=== PATIENT | female | born 1945 | race Hispanic/Latino ===

== ENCOUNTER 2023-08-09 15:19 | Emergency (ER) | payer MEDICARE, OTHER ==
[~2023-08-09] VITALS: Ht 160 cm; Wt 87.5 kg
[2023-08-09 16:05] LABS: APPEARANCE,URINE CLEAR (CLEAR); BILIRUBIN,URINE NEGATIVE (NEGATIVE); COLOR,URINE LIGHT-YELLOW (YELLOW); GLUCOSE, URINE (UA) >=1000 mg/dL (NEGATIVE); KETONES,URINE NEGATIVE (NEGATIVE); LEUKOCYTE ESTERASE ,URINE 25 Leu/uL (NEGATIVE); NITRATE,URINE 1+ (NEGATIVE); PROTEIN,URINE 20 mg/dL (NEGATIVE); UROBILINOGEN,URINE 0.2 mg/dL (0.2-1.0)
[2023-08-09 16:06] LABS: ADD UA MICROSCOPIC YES
[2023-08-09 16:08] LABS: BACTERIA,URINE MOD /HPF (None Seen); MUCUS,URINE RARE LPF (None Seen); SQUAMOUS EPITHELIAL CELL,UR RARE /HPF (0-2)
[2023-08-09 16:28] LABS: BASOPHILS # (AUTO) 0.04 K/uL (0.00-0.20); BASOPHILS % (AUTO) 0.3 % (0.0-5.0); EOSINOPHILS # (AUTO) 0.11 K/uL (0.00-0.70); EOSINOPHILS % (AUTO) 0.8 % (0.0-8.0); HEMATOCRIT 43.2 % (36-48); IMMATURE GRANULOCYTE ABSOLUTE 0.08 K/uL (0-1); LYMPHOCYTES % (AUTO) 7.6 % (21.0-51.0); MEAN CORPUSCULAR HEMOGLOBIN 29.1 pg (27.0-33.0); MEAN CORPUSCULAR HGB CONC 32.6 g/dL (32.0-36.0); MEAN CORPUSCULAR VOLUME 89.1 fL (79-99); MONOCYTES # (AUTO) 1.3 K/uL (0.1-1.0); MONOCYTES % (AUTO) 9.8 % (3.0-13.0); NEUTROPHILS # (AUTO) 10.6 K/uL (1.8-7.7); NEUTROPHILS % (AUTO) 80.9 % (40.0-77.0); PLATELET COUNT (AUTO) 161 K/uL (130-400); RED BLOOD CELL COUNT(AUTO) 4.85 MIL/uL (4.00-5.50); RED CELL DISTRIBUTION WIDTH 14.4 % (11.0-15.5); WHITE BLOOD COUNT (AUTO) 13.1 K/uL (4.8-10.8)
[2023-08-09] MEDS ORDERED: CEFTRIAXONE 1G VIAL IVPB ONE (16:30)
[2023-08-09 16:42] LABS: CREATININE 1.1 mg/dL (0.5-1.5); POTASSIUM 3.8 mmol/L (3.5-5.1)
[2023-08-09 16:47] LABS: BILIRUBIN,TOTAL 0.8 mg/dL (0.2-1.0); TOTAL PROTEIN, SERUM 6.5 g/dL (6.0-8.3)
[2023-08-09] MEDS ORDERED: SULF1TAB42 PO (17:42)
[2023-08-09 18:31] VITALS: BP 135/61; PULSE 68; RESP 18; O2SAT 98
== END 2023-08-09 18:32 | disposition home or self-care (01) ==
LOC: EDH 15:19
DX: N39.0 Urinary tract infection, site not specified (principal); I10 Essential (primary) hypertension; E78.00 Pure hypercholesterolemia, unspecified; E11.9 Type 2 diabetes mellitus without complications; Z90.89 Acquired absence of other organs
CPT/HCPCS: 99284; 96365; 80053; 85025; 87077; 87088; 87186; 82948; 81001; 36415; J0696

== ENCOUNTER → 2024-12-01 | Outpatient (CLI) | payer MEDICARE ==
[~2024-12-01] MED LIST: SULF1TAB42 PO
[2024-12-02] MEDS: REGADENOSON 0.4 MG/5 ML PF SYG IVP ONE (10:56)
== END | disposition home or self-care (01) ==
LOC: SHCH 08:05
PROVIDERS: ATTEND Internal Medicine Cardiovascular Disease
DX: R07.9 Chest pain, unspecified (principal)
CPT/HCPCS: 78452; 93017; J2785; A9500 ×2

== ENCOUNTER 2025-07-15 18:42 | Emergency (ER) | payer MEDICARE ==
[~2025-07-15] VITALS: Ht 157.5 cm; Wt 78.5 kg
[2025-07-15 18:45] VITALS: BP 139/54; PULSE 74; RESP 18; TEMP 98.5
--- NOTE | 2025-07-15 18:59 | ERN ---
ED Note History of Present Illness Stated Complaint: FALL Chief Complaint: Multiple Trauma/Fall Time Seen by MD: 18:59 Dictation: PATIENT IS AN 80-YEAR-OLD FEMALE HERE WITH COMPLAINTS OF A TRIP AND FALL STRIKING HER FACE. SHE SAID IT WAS MECHANICAL ONLY, THERE WAS NO SYNCOPAL EPISODE. HAS A A LOWER LIP LACERATION. WITH FRONTAL HEADACHE. ADDITIONALLY SHE HAS A AN ABRASION TO HER RIGHT ELBOW AND HER RIGHT KNEE. THERE WAS NO MIDLINE CERVICAL SPINE PAIN. NEELY OR RACCOON SIGN NO LOC. TETANUS SHOT IS UNKNOWN. TRAUMA ALERT WAS ACTIVATED. /MIKE AT BEDSIDE. Allergies: Coded Allergies: No Known Drug Allergies (Unverified Allergy, Unknown, 12/19/16) Home Meds Active Scripts Sulfamethoxazole/Trimethoprim (Bactrim Ds Tablet) 800 Mg-160 Mg Tablet, 1 TAB PO BID for 7 Days, #14 TAB 0 Refills Prov:RONEN CONTEH HAND INSPECTOR 08/09/23 Past Medical History Past Medical History: Diabetes-Type I, High Cholesterol, Hypertension Surgical History: Appendectomy History: Not Applicable RN Note Reviewed/Agreed w/PFSH: Yes Review of System Dictation CONSTITUTIONAL: NEGATIVE EXCEPT FOR HPI HEAD/FACE: NEGATIVE EXCEPT FOR HPI LOWER LIP LACERATION EENT: NEGATIVE EXCEPT FOR HPI RESPIRATORY: NEGATIVE EXCEPT FOR HPI GASTROINTESTINAL/ABDOMINAL: NEGATIVE EXCEPT FOR HPI GENITOURINARY: NEGATIVE EXCEPT FOR HPI MUSCULOSKELETAL: NEGATIVE EXCEPT FOR HPI INTEGUMENTARY: NEGATIVE EXCEPT FOR HPI ABRASION TO RIGHT KNEE AND RIGHT ELBOW NEUROLOGICAL/PSYCH: NEGATIVE EXCEPT FOR HPI HEMATOLOGIC/LYMPHATIC: NEGATIVE EXCEPT FOR HPI ALL SYSTEMS NEGATIVE, EXCEPT NOTED ABOVE. 13 POINT REVIEW OF SYSTEMS ASSESSED AND ALL NEGATIVE EXCEPT FOR ABOVE. Initial Vital Sign VS Vital Signs Date Time Temp Pulse Resp B/P (MAP) Pulse Ox O2 Delivery O2 Flow Rate FiO2 07/15/25 18:45 98.4 74 18 139/54 97 Physical Exam Dictation VITAL SIGNS REVIEWED GENERAL APPEARANCE: ALERT, ORIENTED X 3, MILD ACUTE DISTRESS, WELL DEVELOPED, NOURISHED. HEAD AND FACE: LOWER LIP LACERATION EYES: PERRL, PINL, TONGUE PINK, TMJ INTACT LACERATION TO LOWER LIP JAGGED, INCLUDES VERMILION BORDER. PHARYNX CLEAR,NO ERYTHEMA, TONSILS NO EXUDATES, NO ABSCESSES NOTED, MUCOUS MEMBRANE MOIST NECK: SUPPLE, NON-TENDER, NO THYROMEGALY, NO MASSES, NO JVD, NO BRUITS BREAST:DEFERRED CHEST:NO TENDERNESS, NO CREPITUS, NO PARADOXICAL MOVEMENT, NO RETRACTIONS LUNGS:CLEAR, WELL-VENTILATED, SYMMETRIC, NO RALES, NO WHEEZING, NO RHONCHI, NO STRIDOR, GOOD BREATH SOUNDS BILATERALLY HEART: REGULAR RATE, REGULAR RHYTHM, NO MURMUR, NO GALLOPS VASCULAR: NO PERIPHERAL EDEMA, ABDOMEN: SOFT, POSITIVE BOWEL SOUNDS, NONDISTENDED, NO GUARDING, NONTENDER, NO REBOUND, NO MASSES NO HEPATOMEGALY, NO SPLENOMEGALY, NO LOERA'S SIGN, NO HERNIAS. RECTAL: DEFERRED GENITAL: DEFERRED NEUROLOGICAL: NORMAL SPEECH, MOTOR FUNCTION INTACT, SENSORY FUNCTION INTACT MUSCULOSKELETAL: NECK NONTENDER, FULL RANGE OF MOTION, BACK NONTENDER, FULL RANGE OF MOTION, EXTREMITIES: RIGHT KNEE ABRASION WITH TENDERNESS. ELBOW ABRASION. MOTION TO BOTH. SKIN: COLOR PINK, SEE EXTREMITY NOTE LYMPHATIC: DEFERRED Results (Laboratory/Radiology) Laboratory/Radiology Laboratory Tests Test 07/15/25 19:40 White Blood Count 11.0 K/uL (4.8-10.8) H Red Blood Count 4.43 MIL/uL (4.00-5.50) Hemoglobin 13.0 g/dL (12.0-16.0) Hematocrit 39.6 % (36-48) Mean Corpuscular Volume 89.4 fL (79-99) Mean Corpuscular Hemoglobin 29.3 pg (27.0-33.0) Mean Corpuscular Hemoglobin Concent 32.8 g/dL (32.0-36.0) Red Cell Distribution Width 13.9 % (11.0-15.5) Platelet Count 159 K/uL (130-400) Mean Platelet Volume 9.9 fL (7.5-10.5) Immature Granulocyte % (Auto) 0.8 % (0-1) Neutrophils (%) (Auto) 65.9 % (40.0-77.0) Lymphocytes (%) (Auto) 13.5 % (21.0-51.0) L Monocytes (%) (Auto) 9.2 % (3.0-13.0) Eosinophils (%) (Auto) 9.7 % (0.0-8.0) H Basophils (%) (Auto) 0.9 % (0.0-5.0) Neutrophils # (Auto) 7.3 K/uL (1.8-7.7) Lymphocytes # (Auto) 1.5 K/uL (1.0-4.8) Monocytes # (Auto) 1.0 K/uL (0.1-1.0) Eosinophils # (Auto) 1.07 K/uL (0.00-0.70) H Basophils # (Auto) 0.10 K/uL (0.00-0.20) Absolute Immature Granulocyte (auto 0.09 K/uL (0-1) Nucleated Red Blood Cells 0.0 % (0.0-0.19) Prothrombin Time 10.5 SEC (9.6-11.6) Prothromb Time International Ratio 0.99 (0.85-1.15) Activated Partial Thromboplast Time 26.6 SEC (26.3-35.5) Troponin I High Sensitivity 31 ng/L (4-50) Labs Reviewed?: Yes EKG Comment: EKGS SINUS RHYTHM/HEART RATE 66/AXIS NORMAL/NO ECTOPY ED Course ED Course Orders Procedure Category Date Status Time Ct Head/Brain W/O CT 07/15/25 Resulted Contrast 18:49 Laceration Tray Set CPOE 07/15/25 Transmitted Up (Er) 18:49 Tetanus,Diphtheria PHA 07/15/25 Complete Tox [Adult] (Diphther 19:00 Pelvis 1-2vws RAD 07/15/25 Resulted 18:55 Acetaminophen 500mg PHA 07/15/25 Complete Tab (Tylenol 500mg T 19:00 Lidocaine Hcl 1% 20ml PHA 07/15/25 Complete Vial (Lidocaine Hc 19:15 Ct Cervical Spine W/O CT 07/15/25 Resulted Contrast 19:20 Pt And Ptt LAB 07/15/25 Complete 19:31 Cbc With Differential LAB 07/15/25 Complete 19:31 Troponin I High LAB 07/15/25 Complete Sensitivity 19:31 Urinalysis Profile LAB 07/15/25 Logged 19:31 12 Lead Ekg Tracing- EKG 07/15/25 Complete Technical 19:31 Ondansetron 4mg Inj PHA 07/15/25 Complete (Zofran 4mg Inj) 20:00 Ondansetron 4mg Inj PHA 07/15/25 Complete (Zofran 4mg Inj) 19:35 Current Medications Medications (Trade) Dose Ordered Sig/Smooth Route PRN Reason Start Time Stop Time Status Last Admin Dose Admin Acetaminophen (TYLenol 500MG TAB) 1,000 mg ONCE ONCE PO 07/15/25 19:00 07/15/25 19:01 DC Lidocaine HCl (Lidocaine HCl 1% 20ml Vial) 5 ml ONCE STAT INJ 07/15/25 19:15 07/15/25 19:18 DC Ondansetron HCl (zoFRAN 4MG INJ) 4 mg ONCE ONCE IVP 07/15/25 20:00 07/15/25 20:01 DC 07/15/25 19:45 Ondansetron HCl (zoFRAN 4MG INJ) 4 mg STK-MED ONCE .ROUTE 07/15/25 19:35 07/15/25 19:35 DC Tetanus/ Diphtheria Toxoids Adsorbed (DiphthERIA-teTANUS TOXOID [ADULT]/ DECAVAC) 0.5 ml ONCE ONCE IM 07/15/25 19:00 07/15/25 19:01 DC 07/15/25 19:12 Vital Signs Date Time Temp Pulse Resp B/P (MAP) Pulse Ox O2 Delivery O2 Flow Rate FiO2 07/15/25 18:45 98.4 74 18 139/54 97 193/[facility] FOR A STAT READ OF THE CT OF THE HEAD. 1940/CALLED TO REVIEWED CT OF THE HEAD. PATIENT REMAINS NEUROLOGICALLY INTACT. SHE NOW TELLS THE RN/BETSEY THAT SHE HAS BEEN DIZZY IN HIS HAD SEVERAL RECENT FALLS. THIS WAS JUST THE LATEST FALL TODAY. NIH IS 0 ON APPROACH SHE IS MOVING ALL EXTREMITIES 5/5 BILATERALLY. YOUR MILDLY NAUSEATED THAT THIS TIME. 1949/ DR ALEXIS, HE REVIEWED VIDEO ONSET PATIENT NEEDS TO BE TRANSFERRED TO HIGHER LEVEL OF CARE WITH NEUROSURGICAL CAPABILITIES. MARTIN ESPINOSA COVERAGE ANALYST IN ER AND WE WILL INITIATE TRANSFER PROCEEDINGS. SPOKE WITH PATIENT AND SHE AGREES TO BE TRANSFER SHE STATES THERE IS NO FAMILY AVAILABLE TO COME IN AND ASSIST WITH ANY OTHER DECISION-MAKING. SHE REMAINS ALERT AND ORIENTED X4 SPEECH IS CLEAR. Medical Decision Making MDM CT Head Without IV contrast. CLINICAL HISTORY: Patient presents after a fall. TECHNIQUE: Axial computed tomography images of the head/brain without intravenous contrast. COMPARISON: None provided. FINDINGS: BRAIN: Acute subdural hemorrhage along the right frontal, parietal, and temporal convexities with a maximum thickness of approximately 1.3 cm. Mass effect with approximately 0.8 cm leftward midline shift. Acute subdural hemorrhage along the right frontal and right parietal convexities. Mild diffuse cerebral atrophy in the form of prominent cortical sulci, basal cisterns, and bilateral sylvian fissures. Periventricular hypodensities concerning for chronic microangiopathic ischemic changes. No mass lesion. No CT evidence of acute territorial infarct. No extra-axial collections other than the described subdural hemorrhage. VENTRICLES: No hydrocephalus. ORBITS: The orbits are unremarkable. SINUSES AND MASTOIDS: The paranasal sinuses and mastoid air cells are clear. BONES: No fracture. SOFT TISSUES: Unremarkable. IMPRESSION: Acute subdural hemorrhage along the right frontal, parietal, and temporal convexities measuring up to 1.3 cm in thickness. Mass effect with approximately 0.8 cm leftward midline shift. Acute subdural hemorrhage along the right frontal and right parietal convexities. Mild diffuse cerebral atrophy. Chronic microangiopathic ischemic changes. 80-year-old female status post fall found to have acute subdural rash with a 0.8 cm left midline shift. Surgeon was consulted recommended transfer the patient for further medical/surgical management. Was clipped at [facility] and he will be transfer. NIH 15, alert and orientated x4. DX & DISP Disposition: Transfer Departure Impression: Primary Impression: Acute subdural hematoma Condition: Stable Referrals: YANN GONSALEZ DO (PCP) CASPER PRABHAKAR Jul 15, 2025 18:59 CHEMA WHITAKER MD Jul 15, 2025 21:17
--- NOTE | 2025-07-15 19:45 | HMCIMG ---
EXAM: CR Pelvis, 1 View. CLINICAL HISTORY: PAIN STATUS POST FALL COMPARISON: None provided. FINDINGS: BONES: No acute fracture or aggressive appearing osseous lesion. JOINTS: No dislocation. 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 Mild spondylosis of the visualized lower lumbar spine. SOFT TISSUES: The soft tissues are unremarkable. Vascular stent overlies the left common iliac artery. IMPRESSION: No acute osseous abnormality. /[place]
--- NOTE | 2025-07-15 19:53 | EKG ---
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
[2025-07-15 19:54] LABS: IMMATURE GRANULOCYTE ABSOLUTE 0.09 K/uL (0-1); NUCLEATED RED BLOOD CELLS 0.0 % (0.0-0.19); PLATELET COUNT (AUTO) 159 K/uL (130-400); RED BLOOD CELL COUNT(AUTO) 4.43 MIL/uL (4.00-5.50); RED CELL DISTRIBUTION WIDTH 13.9 % (11.0-15.5); WHITE BLOOD COUNT (AUTO) 11.0 K/uL (4.8-10.8)
--- NOTE | 2025-07-15 19:55 | HMCIMG ---
EXAM: CT Head Without IV contrast. CLINICAL HISTORY: Patient presents after a fall. TECHNIQUE: Axial computed tomography images of the head/brain without intravenous contrast. COMPARISON: None provided. FINDINGS: BRAIN: Acute subdural hemorrhage along the right frontal, parietal, and temporal convexities with a maximum thickness of approximately 1.3 cm. Mass effect with approximately 0.8 cm leftward midline shift. Acute subdural hemorrhage along the right frontal and right parietal convexities. Mild diffuse cerebral atrophy in the form of prominent cortical sulci, basal cisterns, and bilateral sylvian fissures. Periventricular hypodensities concerning for chronic microangiopathic ischemic changes. No mass lesion. No CT evidence of acute territorial infarct. No extra-axial collections other than the described subdural hemorrhage. VENTRICLES: No hydrocephalus. ORBITS: The orbits are unremarkable. SINUSES AND MASTOIDS: The paranasal sinuses and mastoid air cells are clear. BONES: No fracture. SOFT TISSUES: Unremarkable. IMPRESSION: Acute subdural hemorrhage along the right frontal, parietal, and temporal convexities measuring up to 1.3 cm in thickness. Mass effect with approximately 0.8 cm leftward midline shift. Acute subdural hemorrhage along the right frontal and right parietal convexities. Mild diffuse cerebral atrophy. Chronic microangiopathic ischemic changes. /[place]
[2025-07-15] MEDS: LIDOCAINE HCL 1% 20 ML VIAL INJ STA (20:02)
[2025-07-15 20:06] LABS: INR 0.99 (0.85-1.15)
--- NOTE | 2025-07-15 20:06 | HMCIMG ---
EXAM: CT Cervical Spine Without IV contrast. CLINICAL HISTORY: Patient presents with posterior cervical neck pain after a fall. TECHNIQUE: Axial computed tomography images of the cervical spine without intravenous contrast. Sagittal and coronal reformatted images were generated. COMPARISON: None provided. FINDINGS: ALIGNMENT: Bony alignment is anatomic. DEGENERATIVE CHANGES: Multilevel mild spondylotic changes with multilevel marginal osteophytes and multilevel facet joint arthropathy. No significant central canal stenosis or neural foraminal narrowing. SOFT TISSUES: The prevertebral soft tissues are within normal limits. Nuchal ligament ossification at the C6 level. BONES: No acute fracture or aggressive appearing osseous lesion. Markedly enlarged and heterogeneous thyroid gland may be further characterized with dedicated ultrasound imaging. IMPRESSION: Multilevel mild cervical spondylosis. No acute cervical spine abnormality. /[place]
--- NOTE | 2025-07-15 21:30 | NUR ---
[facility] HERE FOR PATIENT
--- NOTE | 2025-07-15 21:35 | NUR ---
REPORT GIVEN TO MAAME ESPINOSA
== END 2025-07-15 21:35 | disposition short-term general hospital (02) ==
LOC: EDH 18:42
DX: S06.5X0A Traumatic subdural hemorrhage without loss of consciousness, initial encounter (principal); S01.511A Laceration without foreign body of lip, initial encounter; S80.211A Abrasion, right knee, initial encounter; S50.311A Abrasion of right elbow, initial encounter; E10.9 Type 1 diabetes mellitus without complications; E78.00 Pure hypercholesterolemia, unspecified; I10 Essential (primary) hypertension; Z90.49 Acquired absence of other specified parts of digestive tract; W01.198A Fall on same level from slipping, tripping and stumbling with subsequent striking against other object, initial encounter; Y93.89 Activity, other specified; Y92.89 Other specified places as the place of occurrence of the external cause; Y99.8 Other external cause status
CPT/HCPCS: 99285; 70450; 96374; 84484; 85025; 85610; 85730; 36415; 90714; 72170; 72125; 90471; 93005; J2405